=== PATIENT | male | born 1950 | race Caucasian/White ===

== ENCOUNTER 2017-02-10 19:51 | Emergency (ER) | payer OTHER ==
[2017-02-10 20:00] VITALS: BP 160/106; PULSE 82; TEMP 97.8; BMI 27.3
--- NOTE | 2017-02-10 20:08 | PDOC ---
History of Present Illness - General History Source: Patient Exam Limitations: No Limitations - History of Present Illness Initial Comments: 02/10/17 20:21 The patient is a 67 year old male with no significant past medical history who presents to the Emergency Department with a head injury tonight. 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 At practice, a baseball hit him on the left side of his jehovah's witness area. He reports LOC on impact. He currently reports associated headache and nausea. He denies chest pain, shortness of breath.. He denies fever, chills, vomiting, diarrhea, and constipation. PAST MEDICAL HISTORY: no significant history PAST SURGICAL HISTORY: no significant history FAMILY HISTORY: no pertinent history SOCIAL HISTORY: Pt lives with family and is employed. MEDICATIONS: reviewed ALLERGIES: As per nursing notes Review of Systems: General: No fevers or chills, no weakness, no weight loss HEENT: No change in vision. No sore throat,. No ear pain CardioVascular: No chest pain or shortness of breath Respiratory: No cough, or wheezing. Gastrointestinal: + nausea, No vomiting, diarrhea or constipation, No rectal bleeding Genitourinary: No dysuria, hematuria, or frequency Musculoskeletal: No joint or muscle pain or swelling Neurologic: + headache, + LOC. No vertigo, dizziness. Psychiatric: No depression Skin: No rashes or easy bruising Endocrine: No increased thirst or abnormal weight change Allergic: No skin or latex allergy All other systems reviewed and normal Physical Exam: GENERAL: The patient is awake, alert, and fully oriented, in no acute distress. HEAD: Contusion on left jehovah's witness with some tenderness on palpation. No palpable fracture. EYES: Pupils equal, round and reactive to light, extraocular movements intact, sclera anicteric, conjunctiva clear. EXTREMITIES: Normal range of motion, no edema. NEUROLOGICAL: Normal speech, normal gait. PSYCH: Normal mood, normal affect. SKIN: Warm, Dry, normal turgor, no rashes or lesions noted. <Kasey John - Last Filed: 02/10/17 20:41> - General History Source: Patient Exam Limitations: No Limitations - History of Present Illness Initial Comments: 02/10/17 20:44 A portion of this note was documented by scribe services under my direction. I have reviewed the details of the note, within reason, and agree with the documentation. The case summary and management plan written by me. Assessment and plan: This is a 67-year-old male who comes in status post being hit in the head with a baseball. Patient did not lose consciousness but said he was knocked over when the baseball hit him as he was already bending over and fell to the ground. Patient does have a contusion of his left jehovah's witness area. Patient had a CAT scan that was done that was negative for any acute intracranial pathology or fracture of the skull Patient was told he can take Tylenol for the pain and follow-up with his primary care doctor if symptoms have not resolved within 48 hours <Quincy Toro I - Last Filed: 02/10/17 20:47> - General Chief Complaint: Pain, Acute Stated Complaint: HIT IN THE HEAD WITH BASEBALL/HEADACHE Time Seen by Provider: 02/10/17 20:08 Past History <Kasey John - Last Filed: 02/10/17 20:41> - Past Medical History Anemia: No Asthma: No Cancer: No Cardiac Disorders: No CVA: No COPD: No CHF: No Dementia: No Diabetes: No Dialysis: No GI Disorders: No Disorders: No HTN: No Hypercholesterolemia: No HIV: No Kidney Stones: No Liver Disease: No Seizures: No Thyroid Disease: No - Surgical History Abdominal Surgery: No Appendectomy: No Cardiac Surgery: No Cholecystectomy: No Lung Surgery: No Neurologic Surgery: No Orthopedic Surgery: No - Immunization History Immunization Up to Date: Yes - Psycho/Social/Smoking Cessation Hx Anxiety: No Suicidal Ideation: No Smoking Status: No Smoking History: Never smoked Have you smoked in the past 12 months: No Number of Cigarettes Smoked Daily: 0 Information on smoking cessation initiated: No Hx Alcohol Use: No Drug/Substance Use Hx: No Substance Use Type: None Hx Substance Use Treatment: No <Quincy Toro I - Last Filed: 02/10/17 20:47> - Past Medical History Allergies/Adverse Reactions: Allergies Allergy/AdvReac Type Severity Reaction Status Date / Time No Known Allergies Allergy Verified 02/10/17 19:52 Home Medications: Ambulatory Orders NK [No Known Home Medication] 02/10/17 *Physical Exam - Vital Signs Last Vital Signs Temp Pulse Resp BP Pulse Ox 97.8 F 82 16 160/106 100 02/10/17 19:54 02/10/17 19:54 02/10/17 19:54 02/10/17 19:54 02/10/17 19:54 <Kasey John - Last Filed: 02/10/17 20:41> - Vital Signs Last Vital Signs Temp Pulse Resp BP Pulse Ox 97.8 F 82 16 160/106 100 02/10/17 19:54 02/10/17 19:54 02/10/17 19:54 02/10/17 19:54 02/10/17 19:54 <Quincy Toro I - Last Filed: 02/10/17 20:47> ED Treatment Course - RADIOLOGY Radiograph Interpretation: 02/10/17 20:[address] by Dr. Shahnaz Bond Impression: Mild volume loss. No gross evidence of a focal intracranial lesion or hemorrhage is seen. <Kasey John - Last Filed: 02/10/17 20:41> *DC/Admit/Observation/Transfer - Attestations Scribe Attestion: 02/10/17 20:21 Documentation prepared by Kasey John, acting as medical liaison for Quincy Toro MD. <Kasey John - Last Filed: 02/10/17 20:41> <Quincy Toro I - Last Filed: 02/10/17 20:47> Diagnosis at time of Disposition: Contusion of scalp Concussion Qualifiers: Encounter type: initial encounter Loss of consciousness presence/duration: without LOC Qualified Code(s): S06.0X0A - Concussion without loss of consciousness, initial encounter - Discharge Dispostion Disposition: HOME Condition at time of disposition: Stable - Referrals Referrals: James Buchanan MD [Primary Care Provider] - - Patient Instructions Printed Discharge Instructions: DI for Closed Head Injury, Concussion Additional Instructions: Someone should check on you once tonight during the night. You should be arousable to your Normal level of arousability for that time of the night. If you have been vomiting, have had a seizure, or you are unable to be aroused or the person checking on you is concerned that there has been a change in your mental status they should call 911 and have you brought back to the emergency department. You can take Tylenol as needed for pain. Return to the emergency department immediately with ANY new, persistent or worsening symptoms. Continue any medications as previously prescribed by your physician. You should follow up with your primary doctor as soon as possible regarding today's emergency department visit. . Please make sure your doctor reviews the results of your emergency evaluation. Thank you for coming to the Emergency Department today for your care. It was a pleasure to see you today. Please note that your evaluation is INCOMPLETE until you follow-up with your doctor.
[2017-02-10] MEDS ORDERED: ACETAMINOPHEN 500 MG TABLET (FP) PO ONE (20:45)
[2017-02-10] MEDS ORDERED: ACETAMINOPHEN 325 MG TABLET (FP) ONE (20:47)
== END 2017-02-10 20:55 | disposition home or self-care (01) ==
LOC: FER 19:51
DX: S06.0X0A Concussion without loss of consciousness, initial encounter (principal); W21.03XA Struck by baseball, initial encounter; Y93.64 Activity, baseball; Y92.320 Baseball field as the place of occurrence of the external cause
CPT/HCPCS: 70450-TC; 99281-25